=== PATIENT | male | born 2000 | race Caucasian/White ===

== ENCOUNTER 2024-03-29 19:25 | Emergency (ER) | payer BC ==
--- NOTE | 2024-03-29 20:01 | ED ---
General Adult HPI - General Stated complaint: SOB Time Seen by Provider: 03/29/24 19:38 Source: patient, RN notes reviewed - History of Present Illness Initial comments: This is a 23-year-old male with a history of asthma presenting to the ER for chief complaint of shortness of breath and wheezing during the day that is progressively worsened. Patient states he is attempted use of rescue inhaler 2 times today without relief. States he feels he is having an asthma attack. Denies fevers, chills, cough, congestion, rhinorrhea. He denies chest pain, recent prolonged travel, lower extremity swelling, recent surgeries, history of DVT or PE, history of blood clotting disorders. - Related Data Previous Rx's Medication Instructions Recorded predniSONE 50 mg PO DAILY #5 tab 03/29/24 Allergies Allergy/AdvReac Type Severity Reaction Status Date / Time No Known Allergies Allergy Verified 03/29/24 20:05 Review of Systems ROS Statement: Those systems with pertinent positive or pertinent negative responses have been documented in the HPI. ROS Other: All systems not noted in ROS Statement are negative. General Exam - General Exam Comments Initial Comments: Visual Physical Exam Vital signs reviewed General: Well-appearing, nontoxic, no acute distress. Head: Normocephalic, atraumatic Eyes: PERRLA, EOMI ENT: Airway patent Chest: Nonlabored breathing Skin: No visual rash, normal skin tone Neuro: Alert and oriented 3 Musculoskeletal: No gross abnormalities General appearance: alert, in no apparent distress Eye exam: Present: normal appearance, PERRL, EOMI. Absent: scleral icterus, conjunctival injection, periorbital swelling ENT exam: Present: normal exam, mucous membranes moist Neck exam: Present: normal inspection. Absent: tenderness, meningismus, lymphadenopathy Respiratory exam: Present: wheezes. Absent: normal lung sounds bilaterally, respiratory distress, rales, rhonchi, stridor Cardiovascular Exam: Present: regular rate, normal rhythm, normal heart sounds. Absent: systolic murmur, diastolic murmur, rubs, gallop, clicks GI/Abdominal exam: Present: soft, normal bowel sounds. Absent: distended, tenderness, guarding, rebound, rigid Extremities exam: Present: normal inspection, full ROM, normal capillary refill. Absent: tenderness, pedal edema, joint swelling, calf tenderness Back exam: Present: normal inspection Skin exam: Present: warm, dry, intact, normal color. Absent: rash Course Vital Signs 03/29/24 03/29/24 03/29/24 20:06 22:12 22:15 Temperature 100.2 F H 99.2 F Pulse Rate 107 H 96 Respiratory 18 18 Rate Blood Pressure 130/84 144/80 O2 Sat by Pulse 100 98 Oximetry 03/29/24 03/29/24 03/29/24 22:28 22:30 22:37 Temperature Pulse Rate 102 H 96 Respiratory 18 Rate Blood Pressure O2 Sat by Pulse Oximetry 03/29/24 22:43 Temperature 99.1 F Pulse Rate 94 Respiratory 18 Rate Blood Pressure 138/80 O2 Sat by Pulse 100 Oximetry Medical Decision Making - Medical Decision Making Was pt. sent in by a medical professional or institution (, PA, DOCTOR OF MEDICINE, urgent care, hospital, or [facility]...) When possible be specific @ -No Did you speak to anyone other than the patient for history (EMS, parent, family, police, friend...)? What history was obtained from this source @ -No Did you review nursing and triage notes (agree or disagree)? Why? @ -I reviewed and agree with nursing and triage notes Were old charts reviewed (outside hosp., previous admission, EMS record, old EKG, old radiological studies, urgent care reports/EKG's, [facility] records)? Report findings @ -No old charts were reviewed Differential Diagnosis (chest pain, altered mental status, abdominal pain women, abdominal pain men, vaginal bleeding, weakness, fever, dyspnea, syncope, headache, dizziness, GI bleed, back pain, seizure, CVA, palpatations, mental health, musculoskeletal)? @ -Differential Dyspnea: Coronary syndrome, arrhythmia, tamponade, asthma, COPD, pulmonary embolism, pneumonia, pneumothorax, pulmonary effusion, anaphylaxis, diabetic ketoacidosis, flailed chest, pulmonary contusion, diaphragmatic rupture, anemia, neuromuscular, this is not meant to be an all-inclusive list. EKG interpreted by me (3pts min.). @ -none X-rays interpreted by me (1pt min.). @ -Chest x-ray reveals findings consistent of reactive airway disease given history of asthma CT interpreted by me (1pt min.). @ -None done U/S interpreted by me (1pt. min.). @ -None done What testing was considered but not performed or refused? (CT, X-rays, U/S, labs)? Why? @ -None What meds were considered but not given or refused? Why? @ -None Did you discuss the management of the patient with other professionals (professionals i.e. , PA, DOCTOR OF MEDICINE, lab, RT, psych nurse, oncology social worker, road machine operator, teacher, detention officer, protective services case worker)? Give summary @ -No Was smoking cessation discussed for >3mins.? @ -No Was critical care preformed (if so, how long)? @ -No Were there social determinants of health that impacted care today? How? (Homelessness, low income, unemployed, alcoholism, drug addiction, transportation, low edu. Level, literacy, decrease access to med. care, long term, rehab)? @ -No Was there de-escalation of care discussed even if they declined (Discuss DNR or withdrawal of care, Hospice)? DNR status @ -No What co-morbidities impacted this encounter? (DM, HTN, Smoking, COPD, CAD, Cancer, CVA, ARF, Chemo, Hep., AIDS, mental health diagnosis, sleep apnea, morbid obesity)? @ -None Was patient admitted / discharged? Hospital course, mention meds given and route, prescriptions, significant lab abnormalities, going to OR and other pertinent info. @ -Discharge. 23-year-old male with shortness of breath and wheezing. On examination patient did have bilateral diffuse expiratory wheezes. Initial vitals febrile with an oral temperature of 100.2 tachycardic heart rate of 107. Patient is provided with Tylenol, Solu-Medrol, DuoNeb breathing treatment. Chest x-ray consistent with reactive airway disease. On reevaluation after breathing treatment patient's wheezing has much improved. Patient states that he would like discharge at this time. He sent prescription with for prednisone and instructed to continue to use albuterol rescue inhaler as needed and follow- up with primary care provider for further evaluation. All questions answered at bedside strict return parameters sil with the patient is verbalized underst anding. Discussed with Dr. Arizmendi Undiagnosed new problem with uncertain prognosis? @ -No Drug Therapy requiring intensive monitoring for toxicity (Heparin, Nitro, Insulin, Cardizem)? @ -No Were any procedures done? @ -No Diagnosis/symptom? @ -Asthma exacerbation, viral infection Acute, or Chronic, or Acute on Chronic? @ -acute Uncomplicated (without systemic symptoms) or Complicated (systemic symptoms)? @ -Uncomplicated Side effects of treatment? @ -No Exacerbation, Progression, or Severe Exacerbation? @ -No Poses a threat to life or bodily function? How? (Chest pain, [place], [place], pneumonia, PE, COPD, DKA, ARF, appy, cholecystitis, CVA, Diverticulitis, Homicidal, Suicidal, threat to staff... and all critical care pts) @ -No - Lab Data Lab Results 03/29/24 Range/Units 20:07 Influenza Type A (PCR) Not Detected (Not Detectd) Influenza Type B (PCR) Not Detected (Not Detectd) RSV (PCR) Not Detected (Not Detectd) SARS-CoV-2 (PCR) Not Detected (Not Detectd) Disposition Clinical Impression: Viral infection, Asthma exacerbation Disposition: HOME SELF-CARE Condition: Stable Instructions (If sedation given, give patient instructions): Asthma (ED) Additional Instructions: Please return to the Emergency Department if symptoms worsen or any other concerns. Complete full course of steroids as prescribed. Continue Tylenol Motrin as needed for intermittent fevers. Continue to use albuterol inhaler as needed. Recommend a follow-up with your primary care provider in the next 1 to 2 days for further evaluation. Prescriptions: predniSONE 50 mg PO DAILY #5 tab Is patient prescribed a controlled substance at d/c from ED?: No Referrals: None,Stated [Primary Care Provider] - 1-2 days Time of Disposition: 22:36
[2024-03-29 20:09] VITALS: RESP 18
--- NOTE | 2024-03-29 20:35 | XR ---
EXAMINATION TYPE: XR chest 2V DATE OF EXAM: 03/29/2024 8:13 PM CLINICAL INDICATION:Male, 23 years old with history of SOB, wheeze, hx asthma; [facility] COMPARISON: None TECHNIQUE: XR chest 2V Frontal and lateral views of the chest. FINDINGS: Lungs/Pleura: Streaky perihilar opacities are identified. No large effusion or pneumothorax. Pulmonary vascularity: Unremarkable. Heart/mediastinum: Cardiomediastinal silhouette is unremarkable. Musculoskeletal: No acute osseous pathology. IMPRESSION: Findings suggestive of reactive airway disease given history of asthma. [facility], , 03/29/2024 8:33 PM
[2024-03-29] MEDS: ACETAMINOPHEN TAB 500 MG TAB PO STA (22:14)
[2024-03-29] MEDS: methylPREDNISolone SOD SUCCI 125 MG/2 ML VIAL IM ONE (22:20)
[2024-03-29] MEDS: IPRATROPIUM-ALBUTEROL 3 ML NEB INHALATION STA (22:26)
[2024-03-29 22:44] VITALS: BP 138/80; PULSE 94; TEMP 99.1
== END 2024-03-29 22:44 | disposition home or self-care (01) ==
LOC: EC 19:25
DX: B34.9 Viral infection, unspecified (principal); J45.901 Unspecified asthma with (acute) exacerbation
CPT/HCPCS: 94640; 87636; 71046; 99285; 96372; J2919